=== PATIENT | female | born 1960 | race Caucasian/White ===

== ENCOUNTER 2017-06-25 12:16 | Emergency (ER) | payer SELFPAY ==
[~2017-06-25] VITALS: Ht 165.1 cm; Wt 62.0 kg
[2017-06-25] MEDS ORDERED: MORPHINE SULFATE 4 MG/ML CPJ (NOT FOR IM USE) IV ONE (13:30)
[2017-06-25] MEDS ORDERED: ONDANSETRON HCL 4MG/2ML VIAL IV ONE (13:30)
[2017-06-25] MEDS ORDERED: IBUPROFEN 600MG TABLET PO ONE (15:45)
[2017-06-25 15:50] VITALS: BP 119/69
== END 2017-06-25 16:25 | disposition home or self-care (01) ==
LOC: ER 12:31
DX: M25.571 Pain in right ankle and joints of right foot (principal); Z87.891 Personal history of nicotine dependence
CPT/HCPCS: 72100; 73502; 73610; 73630; 96374; 96375; 99284; J2270; J2405; Z7610